=== PATIENT | female | born 1980 | race Caucasian/White ===

== ENCOUNTER → 2017-03-21 | Outpatient (CLI) | payer OTHER | LOC: FIMAGING 13:20 | PROVIDERS: ATTEND Obstetrics & Gynecology | DX: Z36 Encounter for antenatal screening of mother (principal); O09.511 Supervision of elderly primigravida, first trimester; Z3A.12 12 weeks gestation of pregnancy ==

== ENCOUNTER → 2017-05-14 | Outpatient (CLI) | payer OTHER | LOC: FIMAGING 07:23 | PROVIDERS: ATTEND Obstetrics & Gynecology | DX: O09.522 Supervision of elderly multigravida, second trimester (principal); Z3A.20 20 weeks gestation of pregnancy ==

== ENCOUNTER 2017-09-28 22:35 | Inpatient (IN) | payer OTHER ==
[2017-09-28] MEDS ORDERED: OXYTOCIN 20 UNIT in LR 1,000 ML IV PRN (23:05)
[2017-09-28] MEDS ORDERED: EPSOM SALT 454 GM TP PRN (23:05)
[2017-09-28] MEDS ORDERED: OLIVE OIL 118 ML BTL MISC PRN (23:05)
[2017-09-28] MEDS ORDERED: TERBUTALINE SULFATE 1 MG/ML VIAL IV PRN (23:05)
[2017-09-28] MEDS ORDERED: LR 1,000 ML IV PRN (23:05)
--- NOTE | 2017-09-28 23:16 | PDGENHP ---
History and Physical - Chief Complaint Leaking of fluid started at 2145 - History of Present Illness Patient is a 37 year old at 40 weeks gestation EDC 09/28/17 who presents for SROM greenish fluid which started at 2145. Patient also states having irregular contractions. +FM No vaginal bleeding. History Information - Allergies/Home Medication List Allergies/Adverse Reactions: No Known Allergies Allergy (Unverified 09/28/17 23:05) I have personally reviewed and updated: medical history - Past Medical History no pertinent PMH Review of Systems Review of Systems: Physical Exam Physical Exam: Constitutional: no apparent distress, appears nourished Cardiovascular: regular rate and rhythym Respiratory: no respiratory distress, clear to auscultation Gastrointestinal: normoactive bowel sounds, soft, non-tender abdomen Genitourinary: other (SVE 3/90/-2 vtx confirmed by ultrasound. small amount of mec fluid) Skin: warm, normal color, no rashes or abrasions Musculoskeletal: full muscle strength, no muscle tenderness Neurologic: AAOx3 Psychiatric: interacting appropriately Assessment & Plan Assessment: IUP at 40 weeks gestation SROM light mec Vertex by ultrasound Early labor Admit to labor and delivery Ok for pain medication B+/Rubella immune/ GBS negative Okay to ambulate
[2017-09-29 00:07] LABS: % IMMATURE GRANULYOCYTES 0.8 % (0.0-1.1); ABSOLUTE IMMATURE GRANULOCYTES 0.09 10^3/uL (0.00-0.10); ADD DIFF? NO; ADD MORPH? NO; ADD SCAN? NO; ATYPICAL LYMPHOCYTE FLAG 0 (0-99); FRAGMENT RBC FLAG 0 (0-99); HEMATOCRIT 36.6 % (38.0-47.0); HEMOGLOBIN 13.4 g/dL (12.6-16.3); LEFT SHIFT FLG 0 (0-99); LIPEMIA HEMOLYSIS FLAG 90 (0-99); MEAN CELL HEMOGLOBIN 32.2 pg (27.9-34.1); MEAN CELL HEMOGLOBIN CONCENTR. 36.6 g/dL (32.4-36.7); MEAN PLATELET VOLUME 10.7 fL (8.7-11.7); PLATELET CLUMPS FLAG 0 (0-99); PLATELET COUNT 189 10^3/uL (150-400); RED BLOOD CELL COUNT 4.16 10^6/uL (4.18-5.33); RED CELL DISTRIBUTION WIDTH 12.3 % (11.5-15.2)
[2017-09-29] MEDS ORDERED: CALCIUM CARBONATE 500 MG CHEWABLE TAB PO PRN (00:09)
[2017-09-29] MEDS ORDERED: ONDANSETRON 4 MG/2 ML VIAL IVP PRN (00:09)
[2017-09-29 00:25] LABS: ALANINE AMINOTRANSFERASE 41 IU/L (9-52); ASPARTATE AMINOTRANSFERASE 30 IU/L (14-46); BILIRUBIN-UNCONJUGATED 0.1 mg/dL (0.0-1.1); CREATININE 0.6 mg/dL (0.6-1.0); GLOMERULAR FILTRATION RATE > 60; LACTATE DEHYDROGENASE 494 IU/L (313-618); URIC ACID 5.1 mg/dL (2.5-6.8)
[2017-09-29 00:26] LABS: BILIRUBIN,TOTAL 0.1 mg/dL (0.1-1.4)
[2017-09-29] MEDS ORDERED: BUPIVACAINE 0.25% 30 ML SDV ONE (02:03)
[2017-09-29] MEDS ORDERED: fentanYL 4MCG/ML/BUP 0.0625% RTU 250 ML BAG EP ONE (02:03)
--- NOTE | 2017-09-29 03:16 | PREANESOB ---
Obstetric Pre-Anesthesia Info - General Info Proposed Procedure: puneet : 2 Para: 0 EMBER: 09/28/17 Gestational Age: 40 week(s) and 0 day(s) - Info Status: Full Term Monitors: External FHR Pattern: Reassuring - Labor Status Cervical Dilation per last OB SVE: 4 Station per last OB SVE: -1 Amniotic Fluid Color: Clear Magnesium Sulfate in Use: No Indications for Labor Analgesia: Pain Control Labor Epidural: Yes Anesthesia Allergies/Adverse Reactions: Allergy/AdvReac Type Severity Reaction Status Date / Time No Known Allergies Allergy Unverified 09/28/17 23:05 Visit Medications: Generic Name Dose Route Start Last Admin Trade Name Freq PRN Reason Stop Dose Admin Calcium Carbonate 500 mg 09/29/17 00:09 Tums PO 03/28/18 00:08 TID PRN Indigestion Lactated Ringer's 1,000 mls @ 0 mls/hr 09/28/17 23:05 09/29/17 00:19 Lr IV 03/27/18 23:04 1,000 mls PRN PRN Administration SEE PROTOCOL CONDITIONS Protocol Per Protocol Oxytocin 20 unit/ Lactated 1,002 mls @ 150 mls/hr 09/28/17 23:05 Ringer's IV PRN PRN Post- bleeding Lactated Ringer's 500 mls @ 0 mls/hr 09/29/17 03:30 Lr IV 03/28/18 03:29 CONT MIREILLE As Directed Ibuprofen 600 mg 09/28/17 23:05 Motrin PO 03/27/18 23:04 Q6HRS PRN post , inflammation Magnesium Sulfate 454 gm 09/28/17 23:05 Epsom Salt TP 03/27/18 23:04 Q1H PRN perineal discomfort [place] Oil 118 ml 09/28/17 23:05 Sweet Oil MISC 03/27/18 23:04 ONCE PRN perineal massage Ondansetron HCl 4 mg 09/29/17 00:09 09/29/17 00:19 Zofran IVP 03/28/18 00:08 4 mg Q4HRS PRN Administration Nausea/Vomiting, Can't Take PO Terbutaline Sulfate 0.25 mg 09/28/17 23:05 Brethine IV 03/27/18 23:04 ONCE PRN Tachysystole Discontinued Medications Generic Name Dose Route Start Last Admin Trade Name Isi PRN Reason Stop Dose Admin Bupivacaine HCl Confirm 09/29/17 02:03 Sensorcaine 0.25% Sdv Administered 09/29/17 02:04 Dose 30 ml .ROUTE .STK-MED ONE Fentanyl/Bupivacaine HCl Confirm 09/29/17 02:03 Fentanyl/Bupivacaine/Ns 4 Mcg/Ml 0.0625%(Rtu) Administered 09/29/17 02:04 Dose 250 ml EP .STK-MED ONE Sufentanil Citrate Confirm 09/29/17 02:02 Sufenta Administered 09/29/17 02:03 Dose 50 mcg .ROUTE .STK-MED ONE - Vital Signs Height/Weight (Nursing): Height 152.4 cm Weight 59.874 kg Labs: 09/28/17 23:26 09/28/17 23:26 Patient ABO/Rh B POSITIVE 09/28/17 23:26 Uric Acid 5.1 mg/dL (2.5-6.8) 09/28/17 23: Total Bilirubin 0.1 mg/dL (0.1-1.4) 09/28/17 23:26 Conjugated Bilirubin 0.0 mg/dL (0.0-0.5) 09/28/17 23:26 Unconjugated Bilirubin 0.1 mg/dL (0.0-1.1) 09/28/17 23:26 AST 30 IU/L (14-46) 09/28/17 23:26 ALT 41 IU/L (9-52) 09/28/17 23:26 Lactate Dehydrogenase 494 IU/L (313-618) 09/28/17 23:26
[2017-09-29] MEDS ORDERED: LR 500 ML IV SCH (03:30)
--- NOTE | 2017-09-29 07:53 | OBPROG ---
Labor Progress Note Assessment/Plan: Assessment: Plan: Subjective/Intrapartum Course: 09/29/17 07:49 Comfortable with epidural. Feeling min discomfort. Bhavana well on her own Objective: 09/28/17 23:26 09/28/17 23:26 Patient ABO/Rh B POSITIVE 09/28/17 23:26 Uric Acid 5.1 mg/dL (2.5-6.8) 09/28/17 23:26 Total Bilirubin 0.1 mg/dL (0.1-1.4) 09/28/17 23:26 Conjugated Bilirubin 0.0 mg/dL (0.0-0.5) 09/28/17 23:26 Unconjugated Bilirubin 0.1 mg/dL (0.0-1.1) 09/28/17 23:26 AST 30 IU/L (14-46) 09/28/17 23:26 ALT 41 IU/L (9-52) 09/28/17 23:26 Lactate Dehydrogenase 494 IU/L (313-618) 09/28/17 23:26 - SVE Dilation (cm): 9 Effacement (%): 100 Station: 0 Membranes: SROM Amniotic Fluid Color: Clear, Meconium Stained - Contraction Pattern Assessment Current Contraction Pattern: Regular - FHR Assessment [place] FHR (bpm): 140 FHR Pattern Variability: Moderate FHR Category: 1 - Physical Exam General Appearance: WD/WN, alert, no apparent distress Estimated Weight: 0264-7374 Abdomen: non-tender, soft, other (Gravid nontender) Extremities: normal range of motion Back: Normal inspection Skin: normal color Neuro/Psych: no motor/sensory deficits, alert, oriented x 3 Oxytocin Orders Assessment - Pre-Induction/Augmentation Assessment Indication: N/A bhavana on her own Gestational Age: 40 week(s) and 0 day(s) ICD10 Worksheet Patient Problems: Problems Problem Status Onset Active labor Acute - ICD10 Problem Qualifiers (1) Active labor
[2017-09-29] MEDS ORDERED: LIDOCAINE 1% 300 MG/30 ML SDV ONE (10:41)
[2017-09-29] MEDS ORDERED: OLIVE OIL 118 ML BTL ONE (10:41)
[2017-09-29] MEDS ORDERED: MISOPROSTOL 200 MCG TAB ONE (10:42)
[2017-09-29] MEDS ORDERED: AMMONIA AROMATIC 1 EACH AMP IH ONE (10:42)
[2017-09-29] MEDS ORDERED: OXYTOCIN 10 UNIT/ML VIAL ONE (10:42)
[2017-09-29] MEDS ORDERED: ACETAMINOPHEN 500 MG TAB PO ONE (12:30)
[2017-09-29] MEDS ORDERED: HYDROCODONE/APAP 5/325 TAB PO PRN (13:41)
[2017-09-29] MEDS ORDERED: ACETAMINOPHEN 325 MG TAB PO PRN (13:41)
[2017-09-29] MEDS ORDERED: SIMETHICONE 80 MG TAB CHEW PO PRN (13:41)
--- NOTE | 2017-09-29 13:47 | OBDEL ---
Info Type: Vaginal Presentation at Delivery: Vertex L&D Analgesia/Anesthesia Type: Epidural GBS+: Yes Antibiotic Used for + GBS: Ampicillin Intrapartum Medications: Generic Name Dose Route Start Last Admin Trade Name Freq PRN Reason Stop Dose Admin Lactated Ringer's 1,000 mls @ 0 mls/hr 09/28/17 23:05 09/29/17 00:19 Lr IV 03/27/18 23:04 1,000 mls PRN PRN Administration SEE PROTOCOL CONDITIONS Protocol Per Protocol Ondansetron HCl 4 mg 09/29/17 00:09 09/29/17 00:19 Zofran IVP 03/28/18 00:08 4 mg Q4HRS PRN Administration Nausea/Vomiting, Can't Take PO - Hospital Course Intrapartum: 09/29/17 07:49 Comfortable with epidural. Feeling min discomfort. Xavi well on her own Indications for Delivery: Spontaneous Labor, SROM Vaginal Delivery - Delivery Provider Delivery Physician/CNM: Cathy Dai - Labor and Delivery Onset of Contractions Date: 09/28/17 Onset of Contractions Time: 16:00 Onset of Contractions Type: Spontaneous Rupture of Membranes Date: 09/28/17 Rupture of Membranes Time: 21:00 Rupture of Membranes Type: Spontaneous Amniotic Fluid Color: Clear, Meconium Stained Dilation Complete Date: 09/29/17 Dilation Complete Time: 11:10 Placenta Delivery Date: 09/29/17 Placenta Delivery Time: 13:30 Total Hours of Labor: 21 Laceration: Other (Specify) (left vaginal wall) Repair: 2-0, Vicryl Vaginal Sponge Count Correct: Yes Vaginal Needle Count Correct: Yes Vaginal Sweep Performed: Yes EBL: 400 Delivery Events: Nuchal Cord Delivery Comment: Patient pushed for an hour and forty five minutes. Normal spontaneous vaginal delivery of a baby girl. with left labial laceration repaired with 2-0 vicryl. Placenta spontaneously delivered intact EBX 400 ML - Medications Labor Augmentation/Induction Methods Used: None Data [place] Delivery Date: 09/29/17 Delivery Time: 13:05 EMBER: 09/28/17 Gestational Age: 40 week(s) and 1 day(s) Sex of Infant: Female Score (1 Min): 7 Score (5 Min): 9 ICD10 Worksheet Patient Problems: Problems Problem Status Onset Active labor Acute - ICD10 Problem Qualifiers (1) Active labor
[2017-09-29 14:03] LABS: PH VENOUS CORD BLOOD 7.38 (7.20-7.42)
[2017-09-29] MEDS: IBUPROFEN 600 MG TAB PO PRN ×2 (17:03→23:04)
[2017-09-29] MEDS: DOCUSATE SODIUM 100 MG CAP PO PRN (23:05)
[2017-09-30] MEDS: IBUPROFEN 600 MG TAB PO PRN ×3 (05:05→17:03)
--- NOTE | 2017-09-30 07:09 | OBPP ---
Progress Note Assessment/Plan: Assessment: Post day one Normal spontaneous vaginal delivery Plan: 09/30/17 07:07 Continue routine post care medical language specialist today Possible discharge home tomorrow 09/30/17 07:25 Subjective/ Course: 09/30/17 07:26 Doing well, ambulating, tolerating diet min lochia no flatus voiding well Objective: 09/28/17 23:26 09/28/17 23:26 Patient ABO/Rh B POSITIVE 09/28/17 23:26 Uric Acid 5.1 mg/dL (2.5-6.8) 09/28/17 23:26 Total Bilirubin 0.1 mg/dL (0.1-1.4) 09/28/17 23:26 Conjugated Bilirubin 0.0 mg/dL (0.0-0.5) 09/28/17 23:26 Unconjugated Bilirubin 0.1 mg/dL (0.0-1.1) 09/28/17 23:26 AST 30 IU/L (14-46) 09/28/17 23:26 ALT 41 IU/L (9-52) 09/28/17 23:26 Lactate Dehydrogenase 494 IU/L (313-618) 09/28/17 23:26 Temp Pulse Resp BP Pulse Ox 36.3 C 71 16 102/71 09/29/17 21:21 09/29/17 21:21 09/29/17 21:21 09/29/17 21:21 Uterine Position/Fundal Height: Umbilicus -2 Uterine Tone: Firm Physical Exam - Physical Exam Respiratory: chest non-tender Abdomen: normal bowel sounds, non-tender, soft Extremities: normal range of motion, non-tender, normal inspection, swelling (1 + edema) Back: Normal inspection Skin: normal color, warm/dry Neuro/Psych: no motor/sensory deficits, alert, normal mood/affect, oriented x 3
[2017-09-30] MEDS ORDERED: PRENATAL PO SCH (09:00)
[2017-09-30] MEDS: PRENATAL VIT 1 EACH TAB PO SCH (11:02)
[2017-09-30] MEDS: DOCUSATE SODIUM 100 MG CAP PO PRN (11:02)
[2017-09-30 20:09] VITALS: O2SAT 95
[2017-10-01] MEDS: DOCUSATE SODIUM 100 MG CAP PO PRN ×2 (00:17→11:12)
[2017-10-01] MEDS: IBUPROFEN 600 MG TAB PO PRN ×3 (00:17→14:31)
--- NOTE | 2017-10-01 09:49 | OBPP ---
Progress Note Assessment/Plan: Assessment: 37 y/o PPD # 2 s/p doing well. Plan: D/c home with Ibuprofen. Follow-up @ [facility] 4 and 6 weeks. Call with fever, heavy bleeding, s/sx's mastitis or other concerns. 10/01/17 09:46 Subjective/ Course: 09/30/17 07:26 Doing well, ambulating, tolerating diet min lochia no flatus voiding well 10/01/17 09:44 Pt is doing well today. She has min pain controlled with Ibuprofen. Min lochia , ambulating, voiding without difficulty and working on breast feeding with mod nipple soreness, starting APNO cream today. Objective: 09/28/17 23:26 09/28/17 23:26 Patient ABO/Rh B POSITIVE 09/28/17 23:26 Uric Acid 5.1 mg/dL (2.5-6.8) 09/28/17 23:26 Total Bilirubin 0.1 mg/dL (0.1-1.4) 09/28/17 23:26 Conjugated Bilirubin 0.0 mg/dL (0.0-0.5) 09/28/17 23:26 Unconjugated Bilirubin 0.1 mg/dL (0.0-1.1) 09/28/17 23:26 AST 30 IU/L (14-46) 09/28/17 23:26 ALT 41 IU/L (9-52) 09/28/17 23:26 Lactate Dehydrogenase 494 IU/L (313-618) 09/28/17 23:26 Temp Pulse Resp BP Pulse Ox 36.4 C 80 18 114/69 95 09/30/17 20:00 09/30/17 20:00 09/30/17 20:00 09/30/17 20:00 09/30/17 20:00 Uterine Position/Fundal Height: Umbilicus -2 Uterine Tone: Firm Physical Exam - Physical Exam Neck: non-tender, full range of motion, supple Respiratory: chest non-tender, lungs clear, normal breath sounds Cardiac/Chest: regular rate, rhythm Abdomen: normal bowel sounds Extremities: swelling (no), Ezra's sign (neg)
--- NOTE | 2017-10-01 09:49 | OBGCSDC ---
General Delivery Information - General Info : 2 Para: 1 Abortions: 1 Type: Vaginal L&D Analgesia/Anesthesia Type: Epidural, Nitrous Admission Date: 09/28/17 Labs: Patient ABO/Rh B POSITIVE 09/28/17 23:26 Hct 36.6 % (38.0-47.0) L 09/28/17 23:26 - Hospital Course Intrapartum: 09/29/17 07:49 Comfortable with epidural. Feeling min discomfort. Xavi well on her own : 09/30/17 07:26 Doing well, ambulating, tolerating diet min lochia no flatus voiding well 10/01/17 09:44 Pt is doing well today. She has min pain controlled with Ibuprofen. Min lochia , ambulating, voiding without difficulty and working on breast feeding with mod nipple soreness, starting APNO cream today. Vaginal - Delivery Provider Delivery Physician/CNM: Cathy Dai - Diagnosis Labor: Spontaneous Rupture of Membranes Type: Spontaneous Amniotic Fluid Color: Clear, Meconium Stained Laceration: Other (Specify) (left vaginal wall) Repair: 2-0, Vicryl Delivery Events: Nuchal Cord - Delivery EBL: 400 [place] Data [place] Delivery Date: 09/29/17 Delivery Time: 13:05 EMBER: 09/28/17 Gestational Age: 40 week(s) and 3 day(s) Sex of : Female [place] Weight (gm): 3116 g Score (1 Min): 7 Score (5 Min): 9 Discharge Information - Discharge Information Prescriptions: Ibuprofen [Motrin (*)] 600 mg PO Q6HRS PRN #30 tab PRN Reason: post , inflammation Condition: Good Instruction/Follow Up: Four Weeks, Six Weeks
[2017-10-01 10:52] VITALS: BP 115/69; PULSE 95; RESP 17; TEMP 97.7
[2017-10-01] MEDS: PRENATAL VIT 1 EACH TAB PO SCH (11:12)
== END 2017-10-01 15:45 | disposition home or self-care (01) | DRG 775 ==
LOC: OBSVTOIN 22:35 → FLD 22:35 → FOB 09-29 17:15
PROVIDERS: ADMIT Obstetrics & Gynecology; ATTEND Obstetrics & Gynecology
DX: O48.0 Post-term pregnancy (principal); O99.820 Streptococcus B carrier state complicating pregnancy; O77.0 Labor and delivery complicated by meconium in amniotic fluid; O70.0 First degree perineal laceration during delivery; O69.81X0 Labor and delivery complicated by cord around neck, without compression, not applicable or unspecified; Z3A.40 40 weeks gestation of pregnancy; Z37.0 Single live birth
CPT/HCPCS: J2405